=== PATIENT | female | born 1980 | race Caucasian/White ===

== ENCOUNTER → 2018-01-10 | Outpatient (CLI) | payer BC ==
--- NOTE | 2018-01-10 14:39 | PCVCIMAG ---
APPROVED REPORT Study performed: 01/10/2018 13:27:02 EXAM: Comprehensive 2D, Doppler, and color-flow Echocardiogram Patient Location: Echo lab Status: routine BSA: 1.90 HR: 71 bpmBP: 108/68 mmHg Rhythm: NSR Other Information Study Quality: Adequate Indications Abnormal ECG Hypotension Dyspnea 2D Dimensions IVSd: 10.06 (7-11mm) LVDd: 52.61 mm PWd: 8.00 (7-11mm) LVDs: 37.20 (25-40mm) Left Atrium: 29.91 (27-40mm) Aortic Root: 30.29 mm LV Single Plane 4CH: 56.68 % LV Single Plane 2CH: 60.37 % Biplane EF: 58.0 % Volumes Left Atrial Volume (Systole) Single Plane 4CH: 50.48 mLSingle Plane 2CH: 53.76 mL LA ESV Index: 27.00 mL/m2 Aortic Valve AoV Peak Samson.: 1.17 m/s AO Peak Gr.: 5.43 mmHgLVOT Max P.38 mmHg LVOT Max V: 0.92 m/s Mitral Valve E/A Ratio: 1.5 MV Decel. Time: 187.90 ms MV E Max Samson.: 0.52 m/s MV A Samson.: 0.34 m/s IVRT: 89.97 ms Pulmonary Valve PV Peak Samson.: 0.82 m/sPV Peak Gr.: 2.70 mmHg Pulmonary Vein P Vein S: 0.36 m/sP Vein A: 0.33 m/s P Vein D: 0.34 m/sP Vein A Dur.: 128.0 msec P Vein S/D Ratio: 1.06 Tricuspid Valve TR Peak Samson.: 2.26 m/s TR Peak Gr.: 20.50 mmHg Left Ventricle The left ventricle is normal size. There is normal LV segmental wall motion. There is normal left ventricular wall thickness. Left ventricular systolic function is normal. The left ventricular ejection fraction is within the normal range. LVEF is 60%. The left ventricular diastolic function is normal. Right Ventricle The right ventricle is normal size. The right ventricular systolic function is normal. Atria The left atrium size is normal. The right atrium size is normal. Aortic Valve The aortic valve is normal in structure. No aortic regurgitation is present. There is no aortic valvular stenosis. Mitral Valve The mitral valve is normal in structure. Trace mitral regurgitation. No evidence of mitral valve stenosis. Tricuspid Valve The tricuspid valve is normal in structure. Trace tricuspid regurgitation with PAP of 28 mmHg. Pulmonic Valve The pulmonary valve is normal in structure. There is no pulmonic valvular regurgitation. Great Vessels The aortic root is normal in size. IVC is normal in size and collapses >50% with inspiration. Pericardium There is no pericardial effusion. There is no pleural effusion. <Conclusion> The left ventricle is normal size. There is normal left ventricular wall thickness. Left ventricular systolic function is normal. The left ventricular diastolic function is normal. The right ventricle is normal size. The left atrium size is normal. The aortic valve is normal in structure. Trace mitral regurgitation. Trace tricuspid regurgitation with PAP of 28 mmHg.
--- NOTE | 2018-01-10 14:43 | PCVCIMAG ---
APPROVED REPORT Study performed: 01/10/2018 13:53:57 Exam: Stress Echocardiogram Indication: Dyspnea, ABN EKG Patient Location: Echo lab Stress Nurse: Yvette Pete RN Status: routine Ht: 5 ft 5 in HR: 77 bpm BP: 108/68 mmHg Rhythm: NSR Procedure The patient underwent an Exercise Stress Test using the Hugh Protocol. Blood pressure, heart rate, and EKG were monitored. An Echocardiogram was performed by template reproduction technician in four stages in quad fashion. At peak stress, four selected images were obtained and placed side by side with resting images for comparison. Stress Test Details Stress Test: Exercise stress testing was performed using a Hugh protocol. HR Resting HR: 77 bpmMax Heart Rate (APMHR): 181 bpm Max HR Achieved: 151 bpmTarget HR (85% APMHR): 153 bpm % of APMHR: 83 Recovery HR: 95 bpm HR response to stress: Normal HR response to stress BP Resting BP: 108/68 mmHg Max BP: 122/80 mmHg Recovery BP: 112/70 mmHg ECG Resting ECG: Sinus Rhythm, nonspecific ST-T abnormalities Stress ECG: Sinus Rhythm, nonspecific ST-T abnormalities ST Change: Non-ischemic Arrhythmia: None Recovery ECG: Sinus Rhythm, nonspecific ST-T abnormalities Recovery ST Change: Normal Recovery Arrhythmia: None Clinical Reason for Termination: Maximal effort Stress Symptoms: Dyspnea, leg discomfort Exercise duration: 9 min 19 sec Highest Stage Achieved: Stage 4: 4.2 mph at 16% grade. Exercise capacity: 11 METs Overall Exercise Capacity for Age: Normal Scale: Active Angina Score: None Pre-Stress Echo The resting Echocardiogram showed normal left ventricular contractility with an estimated Ejection Fraction of about >55%. Normal wall motion in all segments on baseline images. Post-Stress Echo The stress Echocardiogram showed normal left ventricular contractility with an estimated Ejection Fraction of about 65%. Normal augmentation of wall motion in all segments on post stress images. Clinical No clinical or ECG evidence for ischemia. Conclusion Clinical Response: Non-ischemic Exercise Capacity: Average Stress ECG Response: Non-ischemic Stress Echo Images: Non-ischemic The left ventricle is normal in size and wall thickness in both the rest and stress images. Other Information Study Quality: Adequate <Conclusion> The left ventricle is normal in size and wall thickness in both the rest and stress images.
== END | disposition home or self-care (01) ==
LOC: PCVCIMAG 15:44
PROVIDERS: ATTEND Internal Medicine Cardiovascular Disease
DX: R06.09 Other forms of dyspnea (principal); R94.31 Abnormal electrocardiogram [ECG] [EKG]
CPT/HCPCS: 93306; 93351